=== PATIENT | male | born 1960 | race Native Hawaiian/Other Pacific Islander ===

== ENCOUNTER 2016-03-11 01:14 | Emergency (ER) | payer BC ==
[~2016-03-11] VITALS: Ht 180.3 cm; Wt 90.0 kg
[2016-03-11 01:18] VITALS: BP 182/91; PULSE 52; RESP 16; TEMP 98.2; O2SAT 97
[2016-03-11] MEDS ORDERED: SODIUM CHLOR 0.9% 1000 ML INJ 1,000 ML IV SCH (01:40)
[2016-03-11] MEDS ORDERED: MORPHINE SULFATE 4 MG/ML INJ IV PUSH ONE (01:45)
[2016-03-11] MEDS ORDERED: ONDANSETRON HCL 4 MG/2 ML VIAL IVP ONE (01:45)
[2016-03-11] MEDS ORDERED: SODIUM CHLORIDE 0.9% FLUSH 5 ML FLUSH IVF PRN (01:45)
[2016-03-11] MEDS ORDERED: FAMOTIDINE 20 MG/2 ML VIAL IV PUSH ONE (01:45)
--- NOTE | 2016-03-11 01:47 | PD ---
HPI Chief Complaint: GI Complaint Time Seen by Provider: 01:24 Travel History International Travel<30 days: No Contact w/Intl Traveler<30days: No Traveled to known affect area: No History of Present Illness HPI The patient is a 55-year-old male who presents emergency department for abdominal pain. The patient is a 4-5 day history of abdominal pain that is worse approximately 2-3 hours after eating and is also worse at night. He does complain of mild nausea but denies any vomiting. He has been able to eat without difficulty. The patient denies any known history of peptic ulcer disease are drawn ulcer disease, however, does have a history of gastritis as a child. The patient does state he had a previous open surgery secondary to a prostatectomy that went wrong, states they accidentally partially severed the mesentery artery and subsequently had to perform an open surgery. The patient also has a history of appendectomy, but denies any known history of cholelithiasis or pancreatitis. Symptoms are moderate, exacerbated after 2-3 hours postprandial, and also worse at night. No current alleviating factors. He does have a history of previous colonoscopy, but denies any history of previous EGD. [facility] Past Surgical History Narrative Surgical Prostatectomy, appendectomy Social History Tobacco Use: No Allergies-Medications (Allergen,Severity, Reaction): Coded Allergies: No Known Allergies (Unverified , 03/11/16) Review of Systems Except as stated in HPI: all other systems reviewed are Neg General / Constitutional: No: Fever Cardiovascular: No: Chest Pain or Discomfort Respiratory: No: Shortness of Breath Gastrointestinal: Positive: Nausea, Abdominal Pain, No: Vomiting, Diarrhea, Changes in Bowel Habits Genitourinary: No: Dysuria Physical Exam Narrative GENERAL: Awake, alert, very pleasant 55-year-old male who appears his stated age and is in no acute respiratory distress. SKIN: Warm and dry. HEAD: Atraumatic. Normocephalic. EYES: Pupils equal and round. No scleral icterus. No injection or drainage. ENT: No nasal bleeding or discharge. Mildly dry mucous membranes.. NECK: Trachea midline. No JVD. CARDIOVASCULAR: Regular rate and rhythm. No murmur appreciated. RESPIRATORY: No accessory muscle use. Clear to auscultation. Breath sounds equal bilaterally. GASTROINTESTINAL: Abdomen soft, tender in epigastrium and right upper quadrant, negative Pettit's. No rebound tenderness, guarding, or rigidity. Well-healed midline abdominal scar. MUSCULOSKELETAL: No obvious deformities. No clubbing. No cyanosis. No edema. NEUROLOGICAL: Awake and alert. No obvious cranial nerve deficits. Motor grossly within normal limits. Normal speech. PSYCHIATRIC: Appropriate mood and affect; insight and judgment normal. Data Data Last Documented VS Vital Signs Date Time Temp Pulse Resp B/P Pulse Ox O2 Delivery O2 Flow Rate FiO2 03/11/16 02:03 18 03/11/16 02:03 52 96 03/11/16 01:18 98.2 182/91 Room Air Orders Complete Blood Count With Diff (03/11/16 01:40) Comprehensive Metabolic Panel (03/11/16 01:40) Lipase (03/11/16 01:40) Ct Abd/Pel W/O Iv Contrast (03/11/16 01:40) Iv Access Insert/Monitor (03/11/16 01:40) Ecg Monitoring (03/11/16 01:40) Oximetry (03/11/16 01:40) Morphine Inj (Morphine Inj) (03/11/16 01:45) Ondansetron Inj (Zofran Inj) (03/11/16 01:45) Sodium Chlor 0.9% 1000 Ml Inj (Ns 1000 M (03/11/16 01:40) Sodium Chloride 0.9% Flush (Ns Flush) (03/11/16 01:45) Famotidine Inj (Pepcid Inj) (03/11/16 01:45) Labs Laboratory Tests Test 03/11/16 02:00 White Blood Count 10.7 TH/MM3 Red Blood Count 5.69 MIL/MM3 Hemoglobin 16.6 GM/DL Hematocrit 47.3 % Mean Corpuscular Volume 83.2 FL Mean Corpuscular Hemoglobin 29.2 PG Mean Corpuscular Hemoglobin 35.1 % Concent Red Cell Distribution Width 13.1 % Platelet Count 196 TH/MM3 Mean Platelet Volume 9.4 FL Neutrophils (%) (Auto) 64.1 % Lymphocytes (%) (Auto) 24.9 % Monocytes (%) (Auto) 6.3 % Eosinophils (%) (Auto) 4.4 % Basophils (%) (Auto) 0.3 % Neutrophils # (Auto) 6.9 TH/MM3 Lymphocytes # (Auto) 2.7 TH/MM3 Monocytes # (Auto) 0.7 TH/MM3 Eosinophils # (Auto) 0.5 TH/MM3 Basophils # (Auto) 0.0 TH/MM3 CBC Comment DIFF FINAL Differential Comment Sodium Level 140 MEQ/L Potassium Level 4.1 MEQ/L Chloride Level 106 MEQ/L Carbon Dioxide Level 26.0 MEQ/L Anion Gap 8 MEQ/L Blood Urea Nitrogen 19 MG/DL Creatinine 0.98 MG/DL Estimat Glomerular Filtration 79 ML/MIN Rate Random Glucose 104 MG/DL Calcium Level 9.0 MG/DL Total Bilirubin 0.5 MG/DL Aspartate Amino Transf 20 U/L (AST/SGOT) Alanine Aminotransferase 26 U/L (ALT/SGPT) Alkaline Phosphatase 67 U/L Total Protein 7.3 GM/DL Albumin 4.2 GM/DL Lipase 172 U/L [facility] Medical Decision Making Medical Screen Exam Complete: Yes Emergency Medical Condition: Yes Medical Record Reviewed: Yes Interpretation(s) Last Impressions Abdomen/Pelvis CT 03/11/16 0140 Signed Impressions: Service Date/Time: Friday, March 11, 2016 02:18 - CONCLUSION: Colonic diverticuli and cysts in the left kidney and liver. Mika Paul MD Laboratory Tests Test 03/11/16 02:00 White Blood Count 10.7 TH/MM3 Red Blood Count 5.69 MIL/MM3 Hemoglobin 16.6 GM/DL Hematocrit 47.3 % Mean Corpuscular Volume 83.2 FL Mean Corpuscular Hemoglobin 29.2 PG Mean Corpuscular Hemoglobin 35.1 % Concent Red Cell Distribution Width 13.1 % Platelet Count 196 TH/MM3 Mean Platelet Volume 9.4 FL Neutrophils (%) (Auto) 64.1 % Lymphocytes (%) (Auto) 24.9 % Monocytes (%) (Auto) 6.3 % Eosinophils (%) (Auto) 4.4 % Basophils (%) (Auto) 0.3 % Neutrophils # (Auto) 6.9 TH/MM3 Lymphocytes # (Auto) 2.7 TH/MM3 Monocytes # (Auto) 0.7 TH/MM3 Eosinophils # (Auto) 0.5 TH/MM3 Basophils # (Auto) 0.0 TH/MM3 CBC Comment DIFF FINAL Differential Comment Sodium Level 140 MEQ/L Potassium Level 4.1 MEQ/L Chloride Level 106 MEQ/L Carbon Dioxide Level 26.0 MEQ/L Anion Gap 8 MEQ/L Blood Urea Nitrogen 19 MG/DL Creatinine 0.98 MG/DL Estimat Glomerular Filtration 79 ML/MIN Rate Random Glucose 104 MG/DL Calcium Level 9.0 MG/DL Total Bilirubin 0.5 MG/DL Aspartate Amino Transf 20 U/L (AST/SGOT) Alanine Aminotransferase 26 U/L (ALT/SGPT) Alkaline Phosphatase 67 U/L Total Protein 7.3 GM/DL Albumin 4.2 GM/DL Lipase 172 U/L Differential Diagnosis Differential diagnosis includes peptic ulcer disease, gastritis, pancreatitis, biliary colic, cholecystitis, duodenal ulcer. Narrative Course IV was established, labs were drawn and sent, and the patient was placed on cardiac telemetry monitoring and continuous pulse oximetry monitoring. The patient was administered morphine, Zofran, Pepcid, and IV fluids. Lipase and LFTs were sent to lab. CT of the abdomen and pelvis was ordered. Laboratory evaluation is unremarkable, LFTs and lipase are normal. CT the abdomen and pelvis reveals no acute findings. No evidence of cholecystitis or pancreatitis. Patient may have it did one ulcer/peptic ulcer disease, therefore , will be placed on Protonix. He is advised to follow-up with gastroenterology if symptoms persist and return if symptoms worsen or progress. Diagnosis Primary Impression: Abdominal pain Qualified Code: R10.13 - Epigastric pain Additional Impression: Peptic ulcer disease Patient Instructions: General Instructions Additional Instructions: Please provide a patient a copy of his labs and CT results at discharge. Protonix as directed. Follow-up with gastroenterology if symptoms persist for outpatient endoscopy. Return if symptoms worsen or progress. Med/Other Pt SpecificInfo: Prescription(s) given Scripts Pantoprazole (Protonix)40 Mg Tab40 Mg PO DAILY #30 TAB Ref 1 Prov:Arya Riggs MD 03/11/16 Disposition: DISCHARGE HOME Condition: Stable Arya Riggs MD Mar 11, 2016 01:47
[2016-03-11 02:03] VITALS: PULSE 52; RESP 18; O2SAT 96
[2016-03-11 02:40] LABS: AUTOMATED NEUTROPHIL # 6.9 TH/MM3 (1.8-7.7); BASOPHIL % 0.3 % (0.0-2.0); EOSINOPHIL # 0.5 TH/MM3 (0-0.4); EOSINOPHIL % 4.4 % (0.0-4.0); HEMATOCRIT 47.3 % (39.0-51.0); HEMO FLAGS DIFF FINAL; LYMPH % 24.9 % (9.0-44.0); LYMPHOCYTE # 2.7 TH/MM3 (1.0-4.8); MEAN CELL VOLUME 83.2 FL (80.0-100.0); MEAN CORPUSCULAR HEMOGLOBIN 29.2 PG (27.0-34.0); MEAN CORPUSCULAR HGB CONC 35.1 % (32.0-36.0); MONO % 6.3 % (0.0-8.0); NEUT % 64.1 % (16.0-70.0); PLATELET COUNT 196 TH/MM3 (150-450); RED BLOOD COUNT 5.69 MIL/MM3 (4.50-5.90); RED CELL DISTRIBUTION WIDTH 13.1 % (11.6-17.2); WHITE BLOOD COUNT 10.7 TH/MM3 (4.0-11.0)
--- NOTE | 2016-03-11 02:52 | RADRPT ---
EXAM DATE/TIME: 03/11/2016 02:18 [place] COMPARISON: No previous studies available for comparison. INDICATIONS : Right upper quadrant pain and epigastric pain for 5 days. ORAL CONTRAST: No oral contrast ingested. RADIATION DOSE: 10.73 CTDIvol (mGy) MEDICAL HISTORY : Ulcers. gastritis SURGICAL HISTORY : Prostatectomy. ENCOUNTER: Initial ACUITY: 4 - 6 days PAIN SCALE: 5/10 LOCATION: Right upper quadrant abdomen TECHNIQUE: Volumetric scanning of the abdomen and pelvis was performed. Using automated exposure control and ad justment of the mA and/or kV according to patient size, radiation dose was kept as low as reasonably achievable to obtain optimal diagnostic quality images. FINDINGS: CT Abdomen: The spleen, pancreas, right kidney, adrenals are unremarkable. There is no evidence for a ny appreciable pathological adenopathy, free fluid, or bowel obstruction. There are simple cysts in the left hepatic lobe and left kidney the largest one in the left kidney measuring 1.8 cm in size. Th ere is no evidence for any stones in the kidneys or the course of the ureters on either side. There i s no hydronephrosis. Chronic vascular calcifications are present involving the aorta, iliac arteries without any significant stenosis or aneurysmal dilatations for technique. CT pelvis: There is no evidence for mass, abscess formation, or any significant adenopathy within the pelvis. There are scattered diverticuli mainly in the sigmoid colon without definite signs of divert iculitis. CONCLUSION: Colonic diverticuli and cysts in the left kidney and liver. Mika Paul MD on March 11, 2016 at 2:48 Board Certified Radiologist. This report was verified electronically.
[2016-03-11 02:57] LABS: ALKALINE PHOSPHATASE 67 U/L (45-117); ALT (GPT) 26 U/L (12-78); TOTAL BILIRUBIN ADULT 0.5 MG/DL (0.2-1.0)
[2016-03-11 02:58] LABS: ANION GAP 8 MEQ/L (5-15); AST (GOT) 20 U/L (15-37); BLOOD UREA NITROGEN 19 MG/DL (7-18); CHLORIDE 106 MEQ/L (98-107); GLOMERULAR FILTRATION RATE 79 ML/MIN (>89); POTASSIUM 4.1 MEQ/L (3.5-5.1); SODIUM (NA) 140 MEQ/L (136-145)
[2016-03-11] MEDS ORDERED: PROT40TA PO (03:18)
== END 2016-03-11 04:18 | disposition home or self-care (01) ==
LOC: NEPC 01:14
DX: R10.13 Epigastric pain (principal); K27.9 Peptic ulcer, site unspecified, unspecified as acute or chronic, without hemorrhage or perforation; R10.11 Right upper quadrant pain
CPT/HCPCS: 74176; 80053; 83690; 85025; 96361; 96374; 96375; 99284; J2270; J2405; J7030

== ENCOUNTER 2016-09-10 08:37 | Emergency (ER) | payer BC ==
[~2016-09-10] VITALS: Ht 180.3 cm; Wt 90.0 kg
[~2016-09-10 08:37] MED LIST: PROT40TA PO
[2016-09-10 08:39] VITALS: BP 175/84; PULSE 75; RESP 15; TEMP 98.3; O2SAT 99
[2016-09-10] MEDS ORDERED: SIMV10TA PO (08:50)
[2016-09-10] MEDS ORDERED: GABA300C5 PO (09:22)
[2016-09-10] MEDS ORDERED: ACYC-101 PO (09:22)
--- NOTE | 2016-09-10 09:22 | PD ---
HPI Chief Complaint: Pain: Acute or Chronic Time Seen by Provider: 08:57 Travel History International Travel<30 days: No Contact w/Intl Traveler<30days: No Traveled to known affect area: No History of Present Illness HPI 56-year-old male complaining of painful rash on the right arm and joint pain. Patient states that he started having pain on the right side the neck and the right arm last night. Patient started having a rash the right arm since last night also. Patient states that he has joint pain for the past several days. Patient denies any fever chills. Patient denies any headache. Patient denies any coughing congestion. Patient denies any focal weakness or numbness of extremity. Patient has history of hyperlipidemia. PFSH Past Medical History Cancer: Yes (PROSTATE CA~10YRS AGO) High Cholesterol: Yes Diminished Hearing: No Influenza Vaccination: No Past Surgical History Abdominal Surgery: Yes (inguinal hernia repair) Appendectomy: Yes Tonsillectomy: Yes Other Surgery: Yes (PROSTATE REMOVAL ) Social History Alcohol Use: No Tobacco Use: Yes (cigarettes) Substance Use: No Allergies-Medications (Allergen,Severity, Reaction): Coded Allergies: No Known Allergies (Unverified , 09/10/16) Reported Meds & Prescriptions Reported Meds & Active Scripts Active Reported Simvastatin 10 Mg Tab 10 Mg PO EVERY OTHER DAY Review of Systems General / Constitutional: No: Fever Eyes: No: Visual changes HENT: No: Headaches Cardiovascular: No: Chest Pain or Discomfort Respiratory: No: Shortness of Breath Gastrointestinal: No: Abdominal Pain Genitourinary: No: Dysuria Musculoskeletal: No: Pain Skin: Positive Rash Neurologic: No: Weakness Psychiatric: No: Depression Endocrine: No: Polydipsia Hematologic/Lymphatic: No: Easy Bruising Physical Exam Narrative GENERAL: Well-nourished, well-developed patient. SKIN: Focused skin assessment warm/dry. HEAD: Normocephalic. EYES: No scleral icterus. No injection or drainage. NECK: Supple, trachea midline. No JVD or lymphadenopathy. CARDIOVASCULAR: Regular rate and rhythm without murmurs, gallops, or rubs. RESPIRATORY: Breath sounds equal bilaterally. No accessory muscle use. GASTROINTESTINAL: Abdomen soft, non-tender, nondistended. MUSCULOSKELETAL: No cyanosis, or edema. BACK: Nontender without obvious deformity. No CVA tenderness. Patient has blistering type rash extending from the right shoulder pad to the right shoulder to right arm. Data Data Last Documented VS Vital Signs Date Time Temp Pulse Resp B/P Pulse Ox O2 Delivery O2 Flow Rate FiO2 09/10/16 08:39 98.3 75 15 175/84 99 MDM Medical Decision Making Medical Screen Exam Complete: Yes Emergency Medical Condition: Yes Differential Diagnosis Differential diagnosis including shingles, folliculitis, cellulitis, dermatitis. Narrative Course 56-year-old male with painful rash on the right arm with pain extension on the right sided neck to right arm. Diagnosis Primary Impression: Shingles Qualified Code: B02.9 - Herpes zoster without complication Patient Instructions: General Instructions Additional Instructions: Take medications as directed. Follow-up with personal physician. Chickenpox precautions given. Med/Other Pt SpecificInfo: Prescription(s) given Scripts Gabapentin 300 Mg [id number] Mg PO TID #90 CAP Ref 0 Prov:Alfred Colon MD 09/10/16 Acyclovir (Zovirax)800 Mg [id number] Mg PO 5 TIMES A DAY #35 TAB Prov:Alfred Colon MD 09/10/16 Disposition: 01 DISCHARGE HOME Condition: Stable Alfred Colon MD Sep 10, 2016 09:22
== END 2016-09-10 09:42 | disposition home or self-care (01) ==
LOC: NEPE 08:37
DX: B02.9 Zoster without complications (principal)
CPT/HCPCS: 99284